=== PATIENT | male | born 1935 | race Caucasian/White ===

== ENCOUNTER → 2017-01-11 | Outpatient (CLI) | payer MEDICARE ==
[~2017-01-11] MED LIST: CARDURA 8MG TAB8 MG PO; CIPRO 500MG TA500 MG PO; DITROPAN 5MG TAB5 MG PO; DYAZIDE 25 MG-31 CAP PO; K-DUR 2020 MEQ PO; MULTIPLE VITAMI1 CAP PO; NIACINOL500 MG PO; OMEGA 31000 MG PO; PRAVACHOL 40MG40 MG PO; VASOTEC20 MG PO; VITAMIN D 1001000 IU PO
== END ==
LOC: COL.RAD 12:41
DX: R31.0 Gross hematuria (principal)